=== PATIENT | male | born 1975 | race Caucasian/White ===

== ENCOUNTER 2016-09-14 16:04 | Emergency (ER) | payer MEDICARE, MEDICAID ==
[2016-09-14] MEDS ORDERED: Tetan/Diph/Pertus SYR(Tdap)* 0.5 ML SYR(BOOSTRIX) use SYR IM ONE (17:05)
[2016-09-14 17:11] VITALS: BP 130/98
--- NOTE | 2016-09-14 18:14 | RAD ---
INDICATION: Left hand laceration. TECHNIQUE: 4 views of the left hand were obtained. FINDINGS: There is soft tissue swelling in the first and second fingers. No fracture is seen. There is a small 1 mm punctate metallic density located superficially in or on the lateral volar soft tissues at the level of the second middle phalanx. IMPRESSION: 1. SOFT TISSUE SWELLING, NO FRACTURE IS SEEN. 2. SMALL PUNCTATE METALLIC DENSITY IN OR ON THE SUPERFICIAL SOFT TISSUES AT THE LEVEL OF THE SECOND MIDDLE PHALANX.
--- NOTE | 2016-09-14 18:14 | ED ---
Laceration/Wound HPI - HPI Summary HPI Summary: 41 male presents with complains of left hand laceration that occurred just [employer] on 09/14/16 from a external grinder tender while working on a project at home. Patient denies pain, numbness/tingling, and has full ROM. States his tetanus was 2 years ago but he will have it updated today. Denies any other injuries at this time. Wound is oozing. - History of Current Complaint Stated Complaint: LT HAND INJURY Time Seen by Provider: 09/14/16 17:47 Hx Obtained From: Patient Mechanism of Injury: Sharp/Blunt Trauma - external grinder tender Onset/Duration: Sudden Onset Alleviating: Compression Onset Severity: Moderate Current Severity: None Pain Intensity: 0 Pain Scale Used: 0-10 Numeric Associated Signs & Symptoms: Negative Related Hx: Dominant Hand (Right) - Allergy/Home Medications Allergies/Adverse Reactions: Allergies Allergy/AdvReac Type Severity Reaction Status Date / Time No Known Allergies Allergy Verified 09/14/16 17:08 PMH/Surg Hx/FS Hx/Imm Hx Endocrine/Hematology History: Reports: Hx Diabetes Cardiovascular History: Reports: Hx Hypertension Respiratory History: Reports: Other Respiratory Problems/Disorders - hx smoker Musculoskeletal History: Reports: Hx Orthopedic Injury - left knee Neurological History: Reports: Other Neuro Impairments/Disorders - syncopal event - Surgical History Surgery Procedure, Year, and Place: left knee with titanium plate repair after contusion Hx Anesthesia Reactions: No Infectious Disease History: No Infectious Disease History: Denies: Hx Clostridium Difficile, Hx Hepatitis, Hx Human Immunodeficiency Virus (HIV), Hx of Known/Suspected MRSA, Hx Shingles, Hx Tuberculosis, Hx Known/ Suspected VRE, Hx Known/Suspected VRSA, History Other Infectious Disease, Traveled Outside the [place] in Last 30 Days - Family History Known Family History: Positive: None - Social History Substance Use Type: Reports: None Smoking Status (MU): Never Smoked Tobacco Review of Systems Constitutional: Negative Cardiovascular: Negative Respiratory: Negative Positive: Myalgia - minimal left hand from lac Positive: Other - left hand posterior laceration Psychological: Normal All Other Systems Reviewed And Are Negative: Yes Physical Exam Triage Information Reviewed: Yes Vital Signs On Initial Exam: Initial Vitals Temp Pulse Resp BP Pulse Ox 98.2 F 89 18 148/107 97 09/14/16 16:25 09/14/16 16:25 09/14/16 16:25 09/14/16 16:25 09/14/16 16:25 BP elevated and re-checked 130/80. Patient is treated for HTN. recommend re- check with pcp Vital Signs Reviewed: Yes Appearance: Positive: Well-Appearing, No Pain Distress, Well-Nourished Skin: Positive: Warm, Skin Color Reflects Adequate Perfusion, Dry, Erythema @ - laceration, Other - laceartion of posterior left hand in a c-shape from external grinder tender. approximately 6.5 cm length, 4 cm wide and 1 cm deep. oozing, no arterial bleeds. no hematoma or obvious FB noted. Head/Face: Positive: Normal Head/Face Inspection Eyes: Positive: Normal, Conjunctiva Clear ENT: Positive: Normal ENT inspection, Hearing grossly normal Neck: Positive: Supple, Nontender Respiratory/Lung Sounds: Positive: Clear to Auscultation, Breath Sounds Present Cardiovascular: Positive: Normal, RRR, Pulses are Symmetrical in both Upper and Lower Extremities - 2+ radial b/l Musculoskeletal: Positive: Normal, Strength/ROM Intact - full ROM no pain, sensation intact. Negative: Pain @, Edema Left, Edema Right Neurological: Positive: Normal, Sensory/Motor Intact, Alert, Oriented to Person Place, Time Psychiatric: Positive: Normal Procedures - Laceration/Wound Repair 1 Location: Other - posterior left hand Description: Linear - in a c-shape Anesthesia: Local, 1.0%, Lido Length, Depth and Shape: 6.5 cm length in a "c" shape, 4cm width, 1 cm depth. Betadine Prep?: Yes Irrigated w/ Saline (ccs): 150 Laceration/Wound Explored: clean, no foreign body removed Closure: Single Layer Suture Type: Prolene Number of Sutures: 13 Layer Closure?: No Sterile Dressing Applied?: Yes Diagnostics - Vital Signs Vital Signs Temp Pulse Resp BP Pulse Ox 09/14/16 17:08 98.6 F 89 18 130/98 96 09/14/16 16:25 98.2 F 89 18 148/107 97 - Laboratory Lab Statement: Any lab studies that have been ordered have been reviewed, and results considered in the medical decision making process. - Radiology left hand Xray Interpretation: Positive (See Comments) - 1. SOFT TISSUE SWELLING, NO FRACTURE IS SEEN. 2. SMALL PUNCTATE METALLIC DENSITY IN OR ON THE SUPERFICIAL SOFT TISSUES AT THE LEVEL OF THE SECOND MIDDLE PHALANX. Radiology Interpretation Completed By: Radiologist Laceration Repair Course/Dx - Course Course Of Treatment: patient was not in any pain and did not want anything for pain management at this time. tetanus updated. x-ray obtained and negative. Did show metallic FB however no at area of laceartion and very superficial was removed at 2nd middle phalanx. Laceration was sutured without complication using sterile technique. Aware of signs and symptoms of infection and complication. Close follow up. Ibuprofen/ice for pain and swelling. Remove within 7 days. Keep clean and dry. - Differential Dx Differental Diagnoses: Cellulitis, Foreign Body, Fracture, Hematoma, Laceration , Tendon Laceration, Other - Clinical Impression Provider Diagnoses: Laceration of hand, left Discharge - Discharge Plan Condition: Stable Disposition: HOME Patient Education Materials: Laceration (ED), Care For Your Stitches (ED) Referrals: Conrado Voss MD [Primary Care Provider] - Additional Instructions: Take ibuprofen for pain and inflammation. Ice hand as needed after 48 hours. Do not get hand/dressing wet for the next 24-48 hours. Keep hand clean and dry. You may apply triple antibiotic ointment on area after 24 hours. Have stitches checked and removed in the next 5-7 days. Watch for signs of infection such as redness, discharge and swelling. If symptoms worsen or new symptoms develop return. Try and keep sugars under control to avoid complications. Follow up with PCP.
== END 2016-09-14 20:22 | disposition home or self-care (01) ==
LOC: ED 16:04
DX: S61.412A Laceration without foreign body of left hand, initial encounter (principal); X58.XXXA Exposure to other specified factors, initial encounter; Y93.9 Activity, unspecified; Y92.9 Unspecified place or not applicable
CPT/HCPCS: 12002; 90715; 99281

== ENCOUNTER 2018-12-08 19:11 | Emergency (ER) | payer MEDICARE, MEDICAID ==
[2018-12-08 19:47] LABS: ABS Basophils 0.1 10^3/ul (0-0.2); ABS Eosinophils 0.2 10^3/ul (0-0.6); ABS Lymphocytes 1.5 10^3/ul (1.0-4.8); ABS Monocytes 0.6 10^3/ul (0-0.8); ABS Neutrophils 8.3 10^3/ul (1.5-7.7); Eosinophil % 2.2 %; Hematocrit 42 % (42-52); Hemoglobin 14.7 g/dL (14.0-18.0); Lymphocyte % 13.6 %; Mean Corpuscular HGB Conc 35 g/dL (31-36); Mean Corpuscular Hemoglobin 31 pg (27-31); Mean Corpuscular Volume 90 fL (80-94); Mean Platelet Volume 6.7 fL (7.4-10.4); Platelet Count 280 10^3/uL (150-450); Red Blood Count 4.68 10^6 /uL (4.18-5.48); Red Cell Distribution Width 13 % (10-15); White Blood Count 10.7 10^3/uL (3.5-10.8)
[2018-12-08 20:04] LABS: Albumin 4.2 g/dL (3.2-5.2); BUN/Creatinine Ratio 16.7 (8-20); Calcium 9.3 mg/dL (8.6-10.3); EGFR African American 144.9 (>60); EGFR Non-African American 119.7 (>60); Globulin 4.1 g/dL (2-4); Total Bilirubin 0.5 mg/dL (0.2-1.0); Total Protein 8.3 g/dL (6.4-8.9)
--- NOTE | 2018-12-08 21:50 | ED ---
Lower Extremity - HPI Summary HPI Summary: A 43 y/o male presents to [facility] with a chief complaint of redness and swelling to his LLE for three days. He reports that while his leg is normally swollen, there has been new redness. He came to the ED to check for a blood clot. He denies any fever, SOB, chest pain, N/V or cough. - History of Current Complaint Chief Complaint: EDExtremityLower Stated Complaint: LEFT LEG POSS BLOOD CLOT, NEED XRAYS FROM 5STAR PE Time Seen by Provider: 12/08/18 19:30 Hx Obtained From: Patient Mechanism Of Injury: Unknown Onset of Pain: Days, Prior to Arrival Onset/Duration: Days Severity Initially: Mild Severity Currently: Mild Pain Intensity: 0 Pain Scale Used: 0-10 Numeric Timing: Constant Location: Is Discrete @ - LLE Associated Signs And Symptoms: Positive: Swelling, Redness. Negative: Fever Aggravating Factor(s): Nothing Alleviating Factor(s): Nothing - Allergies/Home Medications Allergies/Adverse Reactions: Allergies Allergy/AdvReac Type Severity Reaction Status Date / Time No Known Allergies Allergy Verified 09/14/16 17:08 Home Medications: Home Medications Acetaminophen TAB* [Tylenol TAB*] 650 mg PO Q6HR PRN 12/08/18 [History Confirmed 12/08/18] Atorvastatin* [Lipitor 20 MG*] 20 mg PO DAILY 12/08/18 [History Confirmed ] Dulaglutide (NF) [Trulicity (NF)] 0.75 mg SUBCUT WEEKLY 12/08/18 [History Confirmed 12/08/18] Omeprazole 20 mg PO DAILY 12/08/18 [History Confirmed 12/08/18] metFORMIN* [Glucophage 500 MG TAB *] 2,000 mg PO DAILY 12/08/18 [History Confirmed 12/08/18] PMH/Surg Hx/FS Hx/Imm Hx Endocrine/Hematology History: Reports: Hx Diabetes Cardiovascular History: Reports: Hx Hypertension Respiratory History: Reports: Other Respiratory Problems/Disorders - hx smoker Musculoskeletal History: Reports: Hx Orthopedic Injury - left knee Neurological History: Reports: Other Neuro Impairments/Disorders - syncopal event - Surgical History Surgery Procedure, Year, and Place: left knee with titanium plate repair after contusion Hx Anesthesia Reactions: No Infectious Disease History: No Infectious Disease History: Denies: Hx Clostridium Difficile, Hx Hepatitis, Hx Human Immunodeficiency Virus (HIV), Hx of Known/Suspected MRSA, Hx Shingles, Hx Tuberculosis, Hx Known/ Suspected VRE, Hx Known/Suspected VRSA, History Other Infectious Disease, Traveled Outside the [place] in Last 30 Days - Family History Known Family History: Positive: None - Social History Alcohol Use: Rare Substance Use Type: Reports: None Smoking Status (MU): Never Smoked Tobacco Review of Systems Negative: Fever Negative: Chest Pain Negative: Shortness Of Breath, Cough Negative: Vomiting, Nausea Positive: Edema - LLE Positive: Other - positive: LLE redness All Other Systems Reviewed And Are Negative: Yes Physical Exam - Summary Physical Exam Summary: Constitutional: Well-developed, Well-nourished, Alert. (-) Distressed Skin: Warm, Dry HENT: Normocephalic; Atraumatic Eyes: Conjunctiva normal Neck: Musculoskeletal ROM normal neck. (-) JVD, (-) Stridor, (-) Tracheal deviation Cardio: Rhythm regular, rate normal, Heart sounds normal; Intact distal pulses; The pedal pulses are 2+ and symmetric. Radial pulses are 2+ and symmetric. (-) Murmur Pulmonary/Chest wall: Effort normal. (-) Respiratory distress, (-) Wheezes, (-) Rales Abd: Soft, (-) tenderness, (-) Distension, (-) Guarding, (-) Rebound Musculoskeletal: (-) Edema Lymph: (-) Cervical adenopathy Neuro: Alert, Oriented x3 Psych: Mood and affect Normal Triage Information Reviewed: Yes Vital Signs On Initial Exam: Initial Vitals Temp Pulse Resp BP Pulse Ox 97.5 F 84 18 119/84 96 12/08/18 19:13 12/08/18 19:13 12/08/18 19:13 12/08/18 19:13 12/08/18 19:13 Vital Signs Reviewed: Yes Diagnostics - Vital Signs Vital Signs Temp Pulse Resp BP Pulse Ox 12/08/18 19:13 97.5 F 84 18 119/84 96 - Laboratory Lab Results: Lab Results 12/08/18 12/08/18 Range/Units 19:41 19:41 WBC 10.7 (3.5-10.8) 10^3/uL RBC 4.68 (4.18-5.48) 10^6 /uL Hgb 14.7 (14.0-18.0) g/dL Hct 42 (42-52) % MCV 90 (80-94) fL MCH 31 (27-31) pg MCHC 35 (31-36) g/dL RDW 13 (10-15) % Plt Count 280 (150-450) 10^3/uL MPV 6.7 L (7.4-10.4) fL Neut % (Auto) 77.9 % Lymph % (Auto) 13.6 % [place] % (Auto) 5.7 % Eos % (Auto) 2.2 % Baso % (Auto) 0.6 % Absolute Neuts (auto) 8.3 H (1.5-7.7) 10^3/ul Absolute Lymphs (auto) 1.5 (1.0-4.8) 10^3/ul Absolute Monos (auto) 0.6 (0-0.8) 10^3/ul Absolute Eos (auto) 0.2 (0-0.6) 10^3/ul Absolute Basos (auto) 0.1 (0-0.2) 10^3/ul Absolute Nucleated RBC 0.0 10^3/ul Nucleated RBC % 0.0 Sodium 136 (135-145) mmol/L Potassium 4.0 (3.5-5.0) mmol/L Chloride 101 (101-111) mmol/L Carbon Dioxide 26 (22-32) mmol/L Anion Gap 9 (2-11) mmol/L BUN 12 (6-24) mg/dL Creatinine 0.72 (0.67-1.17) mg/dL Est GFR ( Amer) 144.9 (>60) Est GFR (Non-Af Amer) 119.7 (>60) BUN/Creatinine Ratio 16.7 (8-20) Glucose 231 H (70-100) mg/dL Calcium 9.3 (8.6-10.3) mg/dL Total Bilirubin 0.50 (0.2-1.0) mg/dL AST 7 L (13-39) U/L ALT 10 (7-52) U/L Alkaline Phosphatase 111 H (34-104) U/L Total Protein 8.3 (6.4-8.9) g/dL Albumin 4.2 (3.2-5.2) g/dL Globulin 4.1 H (2-4) g/dL Albumin/Globulin Ratio 1.0 (1-3) Result Diagrams: 12/08/18 19:41 12/08/18 19:41 Lab Statement: Any lab studies that have been ordered have been reviewed, and results considered in the medical decision making process. - Ultrasound No standard instances Ultrasound Interpretation Completed By: Radiologist Summary of Ultrasound Findings: Venous doppler study impression: No evidence of DVT. ED physician has reviewed this imaging report. Re-Evaluation - Re-Evaluation First Eval Re-Evaluation Time: 22:45 Change: Unchanged Comment: Updated Pt on results and plan. Lower Extremity Course/Dx - Course Course Of Treatment: A 43 y/o male presents to [facility] with a chief complaint of redness and swelling to his LLE for three days. The physical exam revealed Venous doppler study impression: No evidence of DVT. In the ED course the patient was given Lidocaine IM, Rocephin IM and Bactrim PO. Blood work and chemistries obtained and are WNL. The patient will be discharged with prescriptions for Keflex, Zofran and Bactrim. He will follow up with his PCP. He is agreeable with this plan. - Diagnoses Provider Diagnoses: Cellulitis Discharge - Sign-Out/Discharge Documenting (check all that apply): Patient Departure - DC Patient Received Moderate/Deep Sedation with Procedure: No - Discharge Plan Condition: Stable Disposition: HOME Prescriptions: Cephalexin CAP* [Keflex CAP*] 500 mg PO TID #30 cap Ondansetron TAB* [Zofran 4 MG Tab*] 4 mg PO Q6H PRN #20 tab PRN Reason: Nausea Sulfamethox/Trimethoprim DS* [Bactrim DS 800/160 TAB*] 2 tab PO BID #38 tab Patient Education Materials: Cellulitis (ED) Print Language: GAMBIAN Forms: *Work Release Referrals: Cinthya Thakur MD [Primary Care Provider] - - Billing Disposition and Condition Condition: STABLE Disposition: Home - Attestation Statements Document Initiated by Scribe: Yes Documenting Scribe: Cade Thomas Provider For Whom Scribe is Documenting (Include Credential): Ursula Dent MD Scribe Attestation: Cade Rand, scribed for rUsula Benjamin MD on 12/08/18 at 2332. Scribe Documentation Reviewed: Yes Provider Attestation: The documentation as recorded by the scribe, Cade Thomas accurately reflects the service I personally performed and the decisions made by me, Ursula Benjamin MD Status of Scribe Document: Viewed
[2018-12-08] MEDS ORDERED: Sulfamethox/Trimethoprim DS 800/160* TAB PO ONE (22:31)
[2018-12-08] MEDS ORDERED: Lidocaine 1% MPF ** 5 ML VIAL IM ONE (22:31)
[2018-12-08] MEDS ORDERED: cefTRIAXone VIAL(*) 1,000 MG VIAL IM ONE (22:31)
[2018-12-08 23:00] VITALS: BP 143/89
== END 2018-12-08 22:50 | disposition home or self-care (01) ==
LOC: ED 19:11 → SUPCPDRO 19:11 → ED 22:50
DX: L03.116 Cellulitis of left lower limb (principal); E11.9 Type 2 diabetes mellitus without complications; I10 Essential (primary) hypertension; Z79.84 Long term (current) use of oral hypoglycemic drugs; Z79.899 Other long term (current) drug therapy
CPT/HCPCS: 36415; 80053; 85025; 87040; 96372; 99283; A9270-GY; J0696